=== PATIENT | female | born 1960 | race Caucasian/White ===

== ENCOUNTER 2016-09-06 13:28 | Emergency (ER) | payer BC ==
[~2016-09-06] VITALS: Ht 175.3 cm; Wt 98.1 kg
[~2016-09-06 13:28] MED LIST: ADVIL200 MG PO; ALBUTEROL SULF8.5 GM IH; ASCORBIC ACID500 M3 PO; CLARITIN-D 21 TABLET PO; VENTOLIN HFA18 GM IH
[2016-09-06 15:34] LABS: EOSINOPHIL COUNT 0.1 K/uL (0-0.3); HEMATOCRIT 41.8 % (36.0-46.0); IMMATURE GRANULOCYTE (%) 0.3 % (0.0-0.7); IMMATURE GRANULOCYTE COUNT 0.3 K/uL; LYMPHOCYTE COUNT 2.1 K/uL (1.0-2.8); MCH 30.6 PG (29.0-34.0); MCHC 32.8 G/DL (30.0-36.0); MCV 93.3 FL (83-99); MEAN PLAT.VOLUME 9.9 uM^3 (9.5-12.4); MONOCYTE COUNT 0.6 K/uL (0-0.8); NEUTROPHIL (%) 75.4 % (45-76); PLATELET COUNT 314 K/uL (156-360); RBC DIS.WIDTH-CV 12.4 % (11.8-14.6); RBC DIS.WIDTH-SD 40.8 % (39-53); RED BLOOD COUNT 4.48 M/uL (3.80-5.20); WHITE BLOOD COUNT 11.9 K/uL (4.1-10.2)
[2016-09-06 15:44] LABS: CHLORIDE 109 mEq/L (99-109); SODIUM 143 mEq/L (136-147)
[2016-09-06 15:46] LABS: GLUCOSE 111 mg/dL (70-99)
[2016-09-06 15:47] LABS: ANION GAP 9 MEQ/L (2-14)
[2016-09-06 15:48] LABS: TOTAL BILIRUBIN 0.2 mg/dL (0.0-1.0)
[2016-09-06 15:49] LABS: ALKALINE PHOSPHATASE 84 IU/L (3-129)
[2016-09-06 15:50] LABS: GFR ESTIMATE (CALCULATED) > 59 mL/min/
[2016-09-06 15:51] LABS: UREA NITROGEN (BUN) 9 mg/dL (9-23)
[2016-09-06] MEDS ORDERED: ANTIVERT25 MG PO (16:07)
[2016-09-06 16:33] VITALS: BP 155/90
== END 2016-09-06 16:34 | disposition home or self-care (01) ==
LOC: EME 13:28
PROVIDERS: Physician Assistant
DX: H81.10 Benign paroxysmal vertigo, unspecified ear (principal); R19.7 Diarrhea, unspecified; R11.2 Nausea with vomiting, unspecified; H92.01 Otalgia, right ear; J45.909 Unspecified asthma, uncomplicated
CPT/HCPCS: 80053; 85025; 93005; 99281; 99283; J2060; J7120